=== PATIENT | female | born 1955 | race Native Hawaiian/Other Pacific Islander ===

== ENCOUNTER 2016-03-06 16:34 | Emergency (ER) | payer OTHER ==
[~2016-03-06] VITALS: Ht 154.9 cm; Wt 69.4 kg
[~2016-03-06 16:34] MED LIST: ALLO300T23 PO; AMBIEN5 MG PO; ANTI-DIARRHE2 MG PO; BAYER CHEWABLE81 MG OR; CLARITIN10 MG PO; CLON0.1T16 PO; CLONAZEP ODT2 MG PO; COLACE50 MG PO; COLCRYS 0.6MG0.6 MG PO; CRESTOR20 MG PO; FOLI1TAB26 PO; GABA100C2 PO; HYDR10TA47 PO; HYDR25TA60 PO; IRON45 MG PO; LEVO0.0529 PO; LISI20TA11 PO; MECLIZINE25 MG OR; MELATONIN1 MG PO; MELATONIN3 MG PO; METF500T PO; METR250T19 PO; MIRAPEX0.25 MG PO; MULT VITAMI1 PO; MYRBETRIQ25 MG PO; OMEP20CA PO; OMEPRAZOLE20 MG PO; PROBIOTI3 PO; PROZAC10 MG PO; QUET100T2 PO; TOVIAZ8 MG PO; TRAZODONE300 MG PO; VENLAFAXINE150 M1 PO; VENLAFAXINE75 M2 PO; VIT B12 ER1000 MCG PO; VIT C/VIT E PO; ZANTAC300 MG PO; [UNRECOGNIZED DRUG - OTHER] PO
[2016-03-06 17:02] VITALS: BP 105/61; TEMP 98
[2016-03-06 17:44] LABS: PLATELET COUNT 162 K/uL (152-353)
[2016-03-06 17:56] LABS: POTASSIUM 4.3 mmol/L (3.6-5.2)
== END 2016-03-06 18:38 | disposition home or self-care (01) ==
LOC: ED 16:34
DX: R42 Dizziness and giddiness (principal); Z79.899 Other long term (current) drug therapy
CPT/HCPCS: 36415; 80053; 83036; 85027; 99283

== ENCOUNTER 2016-05-27 16:41 | Observation (INO) | payer OTHER ==
[~2016-05-27] VITALS: Ht 162.6 cm; Wt 75.6 kg
[2016-05-27 18:28] VITALS: BP 113/71; TEMP 97.8; Ht 162.6 cm; Wt 75.6 kg
[2016-05-27 20:00] VITALS: BP 106/67; TEMP 98
[2016-05-27 21:11] LABS: PLATELET COUNT 145 K/uL (152-353)
[2016-05-27 21:22] LABS: POTASSIUM 3.7 mmol/L (3.6-5.2)
[2016-05-28 00:55] VITALS: BP 91/51; TEMP 97.6
[2016-05-28 04:00] VITALS: BP 91/43; TEMP 97.8
[2016-05-28 08:00] VITALS: BP 113/60; TEMP 97.7
[2016-05-28] MEDS ORDERED: CLARITIN10 M1 PO (08:09)
[2016-05-28] MEDS ORDERED: METF100038 PO (08:10)
[2016-05-28] MEDS ORDERED: DITROPAN XL10 MG PO (08:11)
[2016-05-28] MEDS ORDERED: OMEPRAZOLE40 MG PO (08:12)
[2016-05-28] MEDS ORDERED: CLON1TAB18 PO (08:14)
[2016-05-28] MEDS ORDERED: ROBAXIN-750750 MG PO (08:17)
[2016-05-28] MEDS ORDERED: RIVADIS TOP (08:19)
[2016-05-28] MEDS ORDERED: FERROUS SULF325 MG PO (08:21)
[2016-05-28] MEDS ORDERED: MELADOX3 MG PO (08:22)
--- NOTE | 2016-05-28 10:04 | NUR ---
[address] PINEDO CONCERNING HOME MEDS. ORDERS GIVEN TO CON'T HOME MEDS AT THIS TIME. PT INFOMRED
[2016-05-28 12:00] VITALS: BP 115/59; TEMP 97.9
--- NOTE | 2016-05-28 15:35 | NUR ---
1530 CALLED TO ROOM BY PT. PT STATES SHE JUST DOESNT FEEL GOOD. A LITTLE PRESSURE IN CHEST THAT GOES THUR TO THE BACK AND BOTH ARMS R HURTING. VS STABLE AND WNL . CE DRWN STAT AND EKG ORDERED STAT. NOTIFIED AWAITING LAB RESULTS
[2016-05-28 16:00] VITALS: BP 114/65; TEMP 98
[2016-05-28 20:00] VITALS: BP 112/51; TEMP 97.9
[2016-05-29] VITALS: BP 105/57; TEMP 97.4
[2016-05-29 04:00] VITALS: BP 106/54; TEMP 97.6
[2016-05-29 08:00] VITALS: BP 116/53; TEMP 97.6
[2016-05-29 08:13] LABS: PLATELET COUNT 128 K/uL (152-353)
[2016-05-29 08:29] LABS: POTASSIUM 3.8 mmol/L (3.6-5.2)
[2016-05-29 12:25] VITALS: BP 133/48; TEMP 97.7
== END 2016-05-29 16:00 | disposition home or self-care (01) ==
LOC: MED/SURG 16:41
PROVIDERS: ADMIT Family Medicine
DX: E86.0 Dehydration (principal); I95.89 Other hypotension; R82.90 Unspecified abnormal findings in urine
CPT/HCPCS: 36415; 80053; 80307; 81000; 82550; 83735; 84484; 85027; 87040; 87088; 93005; 99220; G0378; G0379; G0479; J0696

== ENCOUNTER 2016-06-29 16:50 | Outpatient (CLI) | payer OTHER ==
[~2016-06-29 16:50] MED LIST changes: +CLARITIN10 M1 PO; +CLON1TAB18 PO; +DITROPAN XL10 MG PO; +FERROUS SULF325 MG PO; +MELADOX3 MG PO; +METF100038 PO; +OMEPRAZOLE40 MG PO; +RIVADIS TOP; +ROBAXIN-750750 MG PO
== END 2016-06-29 19:11 | disposition home or self-care (01) ==
LOC: CT 16:50
DX: R10.30 Lower abdominal pain, unspecified (principal)

== ENCOUNTER 2016-07-09 09:29 | Outpatient (CLI) | payer OTHER | END 2016-07-09 19:29 | disposition home or self-care (01) | LOC: MAMMO 09:29 | DX: Z12.31 Encounter for screening mammogram for malignant neoplasm of breast (principal) | CPT/HCPCS: G0202-TC ==

== ENCOUNTER 2016-07-17 11:55 | Outpatient (CLI) | payer OTHER | END 2016-07-17 19:52 | disposition home or self-care (01) | LOC: RAD 11:55 → ED 11:55 → RAD 19:52 | DX: R10.31 Right lower quadrant pain (principal); E86.0 Dehydration | CPT/HCPCS: 96360; 96361 ==

== ENCOUNTER 2016-07-23 14:34 | Emergency (ER) | payer OTHER ==
[~2016-07-23] VITALS: Ht 154.9 cm; Wt 68.0 kg
[2016-07-23 16:01] LABS: PLATELET COUNT 274 K/uL (152-353)
[2016-07-23 16:04] LABS: POTASSIUM 3.4 mmol/L (3.6-5.2)
[2016-07-23 17:11] VITALS: BP 105/71; TEMP 97.4
== END 2016-07-23 17:21 | disposition home or self-care (01) ==
LOC: ED 14:34
DX: R07.89 Other chest pain (principal); K21.9 Gastro-esophageal reflux disease without esophagitis
CPT/HCPCS: 36415; 80053; 82550; 83880; 84484; 85027; 85610; 86318; 93005; 96374; 99284; J2405

== ENCOUNTER 2016-08-04 12:46 | Outpatient (CLI) | payer OTHER | END 2016-08-04 14:00 | disposition home or self-care (01) | LOC: MAMMO 12:46 | DX: R92.8 Other abnormal and inconclusive findings on diagnostic imaging of breast (principal) | CPT/HCPCS: G0206-TC ==

== ENCOUNTER 2016-08-27 12:52 | Emergency (ER) | payer OTHER ==
[~2016-08-27] VITALS: Ht 154.9 cm; Wt 69.4 kg
[2016-08-27 13:20] VITALS: BP 137/72; TEMP 98.1
== END 2016-08-27 14:57 | disposition home or self-care (01) ==
LOC: ED 12:52
DX: T24.201A Burn of second degree of unspecified site of right lower limb, except ankle and foot, initial encounter (principal); T25.222A Burn of second degree of left foot, initial encounter; T31.10 Burns involving 10-19% of body surface with 0% to 9% third degree burns; X15.2XXA Contact with hotplate, initial encounter; Y92.098 Other place in other non-institutional residence as the place of occurrence of the external cause
CPT/HCPCS: 99281

== ENCOUNTER 2016-09-24 07:49 | Outpatient (CLI) | payer OTHER | END 2016-09-24 19:12 | disposition home or self-care (01) | LOC: LABW 07:49 | PROVIDERS: Internal Medicine Cardiovascular Disease | DX: E78.4 Other hyperlipidemia (principal) | CPT/HCPCS: 36415; 80061 ==

== ENCOUNTER 2016-10-12 08:41 | Outpatient (CLI) | payer OTHER | END 2016-10-12 09:45 | disposition home or self-care (01) | LOC: US 08:41 | DX: R10.84 Generalized abdominal pain (principal) ==

== ENCOUNTER 2016-10-20 10:23 | Outpatient (CLI) | payer OTHER | END 2016-10-20 11:30 | disposition home or self-care (01) | LOC: LABW 10:23 | DX: K76.0 Fatty (change of) liver, not elsewhere classified (principal) | CPT/HCPCS: 36415; 80076 ==

== ENCOUNTER 2016-11-03 10:31 | Day surgery (SDC) | payer OTHER ==
[2016-11-03 11:39] LABS: PLATELET COUNT 163 K/uL (152-353)
[2016-11-03 11:59] LABS: POTASSIUM 3.8 mmol/L (3.6-5.2)
[2016-11-03 12:05] LABS: PARTIAL THROMBOPLASTIN TIME 26.3 SECONDS (24.5-33.6)
== END 2016-11-03 16:50 | disposition home health service (06) ==
LOC: OR 10:31
PROVIDERS: Internal Medicine Gastroenterology
PROC: 0DBK8ZZ Excision of Ascending Colon, Via Natural or Artificial Opening Endoscopic (ICD-10-PCS; principal; 2016-11-03)
PROC: 0DBN8ZZ Excision of Sigmoid Colon, Via Natural or Artificial Opening Endoscopic (ICD-10-PCS; 2016-11-03)
PROC: 0DBM8ZZ Excision of Descending Colon, Via Natural or Artificial Opening Endoscopic (ICD-10-PCS; 2016-11-03)
PROC: 0DBL8ZZ Excision of Transverse Colon, Via Natural or Artificial Opening Endoscopic (ICD-10-PCS; 2016-11-03)
DX: K63.5 Polyp of colon (principal); D12.5 Benign neoplasm of sigmoid colon; K64.8 Other hemorrhoids; Z86.010 Personal history of colon polyps; R10.9 Unspecified abdominal pain
CPT/HCPCS: 36415; 80053; 85027; 85610; 85730; J2001; J2250; J2704; J3010

== ENCOUNTER 2016-11-22 08:50 | Emergency (ER) | payer OTHER ==
[~2016-11-22] VITALS: Ht 154.9 cm; Wt 74.8 kg
[2016-11-22 09:05] VITALS: TEMP 98.5
[2016-11-22 10:34] LABS: PLATELET COUNT 154 K/uL (152-353)
[2016-11-22 10:36] LABS: POTASSIUM 4.5 mmol/L (3.6-5.2); SODIUM 137 mmol/L (136-145)
[2016-11-22 11:30] VITALS: BP 128/60
== END 2016-11-22 12:00 | disposition home or self-care (01) ==
LOC: ED 08:50
PROVIDERS: Family Medicine
DX: R07.89 Other chest pain (principal); K21.0 Gastro-esophageal reflux disease with esophagitis
CPT/HCPCS: 36415; 80053; 82550; 84484; 85027; 93005; 99283

== ENCOUNTER 2017-02-03 10:00 | Outpatient (CLI) | payer OTHER | END 2017-02-03 19:08 | disposition home or self-care (01) | LOC: MAMMO 10:00 | DX: N60.01 Solitary cyst of right breast (principal) ==

== ENCOUNTER 2017-03-11 13:56 | Outpatient (CLI) | payer OTHER | END 2017-03-11 16:49 | disposition home or self-care (01) | LOC: INF 13:56 | DX: E86.0 Dehydration (principal) | CPT/HCPCS: 96360; 96361 ==

== ENCOUNTER 2017-07-18 15:17 | Emergency (ER) | payer OTHER ==
[~2017-07-18] VITALS: Ht 152.4 cm; Wt 74.4 kg
[2017-07-18] MEDS ORDERED: CARAFATE1 GM PO (15:35)
[2017-07-18] MEDS ORDERED: EZETIMIBE10 MG PO (15:36)
[2017-07-18] MEDS ORDERED: CYCL10TA35 PO (15:36)
[2017-07-18] MEDS ORDERED: XYZAL ALLERGY 245 MG PO (15:37)
[2017-07-18] MEDS ORDERED: GALANTAMINE4 MG PO (15:37)
[2017-07-18] MEDS ORDERED: GLIP10TA55 PO (15:38)
[2017-07-18 17:09] LABS: PLATELET COUNT 166 K/uL (152-353)
[2017-07-18 17:18] LABS: POTASSIUM 3.8 mmol/L (3.6-5.2)
[2017-07-18 19:01] VITALS: BP 152/83; TEMP 98.6
== END 2017-07-18 19:06 | disposition home or self-care (01) ==
LOC: ED 15:17
DX: R51 Headache (principal); R10.84 Generalized abdominal pain; M54.89 Other dorsalgia
CPT/HCPCS: 36415; 80053; 81000; 83735; 85027; 96365; 96366; 96375; 99284; J1885; J3475

== ENCOUNTER 2017-08-30 09:26 | Outpatient (CLI) | payer OTHER ==
[~2017-08-30 09:26] MED LIST changes: +CARAFATE1 GM PO; +CYCL10TA35 PO; +EZETIMIBE10 MG PO; +GALANTAMINE4 MG PO; +GLIP10TA55 PO; +XYZAL ALLERGY 245 MG PO
== END 2017-08-30 23:12 | disposition home or self-care (01) ==
LOC: MAMMO 09:26
DX: Z12.31 Encounter for screening mammogram for malignant neoplasm of breast (principal)

== ENCOUNTER 2017-09-08 10:39 | Outpatient (CLI) | payer OTHER ==
[2017-09-08 11:11] LABS: POTASSIUM 3.7 mmol/L (3.6-5.2)
== END 2017-09-08 21:20 | disposition home or self-care (01) ==
LOC: MAMMO 10:39
PROVIDERS: Specialist
DX: R92.8 Other abnormal and inconclusive findings on diagnostic imaging of breast (principal); H81.02 Meniere's disease, left ear
CPT/HCPCS: 36415; 80048

== ENCOUNTER 2017-12-01 12:32 | Outpatient (CLI) | payer OTHER | END 2017-12-01 20:36 | disposition home or self-care (01) | LOC: LABW 12:32 | DX: Z86.010 Personal history of colon polyps (principal) | CPT/HCPCS: 82272 ==

== ENCOUNTER 2018-01-09 13:46 | Outpatient (CLI) | payer OTHER ==
[2018-01-09 14:31] LABS: POTASSIUM 4.2 mmol/L (3.6-5.2)
== END 2018-01-09 22:54 | disposition home or self-care (01) ==
LOC: LABW 13:46
PROVIDERS: Psychiatry & Neurology Neurology
DX: R40.4 Transient alteration of awareness (principal); R41.89 Other symptoms and signs involving cognitive functions and awareness; R68.2 Dry mouth, unspecified
CPT/HCPCS: 36415; 80053

== ENCOUNTER 2018-12-21 15:05 | Outpatient (CLI) | payer OTHER | END 2018-12-21 23:21 | disposition home or self-care (01) | LOC: MRI 15:05 | DX: M54.12 Radiculopathy, cervical region (principal) ==

== ENCOUNTER 2019-06-04 13:27 | Outpatient (CLI) | payer OTHER ==
[2019-06-04 14:10] LABS: POTASSIUM 3.9 mmol/L (3.6-5.2)
[2019-06-04 14:19] LABS: PLATELET COUNT 92 K/uL (152-353)
== END 2019-06-04 19:17 | disposition home or self-care (01) ==
LOC: LABW 13:27
PROVIDERS: Internal Medicine Medical Oncology
DX: D69.6 Thrombocytopenia, unspecified (principal); D64.89 Other specified anemias; R16.2 Hepatomegaly with splenomegaly, not elsewhere classified
CPT/HCPCS: 36415; 80053; 85027; 85044

== ENCOUNTER 2019-11-30 12:27 | Outpatient (CLI) | payer OTHER ==
[2019-11-30 12:57] LABS: PLATELET COUNT 105 K/uL (152-353)
[2019-11-30 13:15] LABS: PARTIAL THROMBOPLASTIN TIME 25.6 SECONDS (24.5-33.6)
[2019-11-30 13:33] LABS: POTASSIUM 3.9 mmol/L (3.6-5.2)
== END 2019-12-01 03:40 | disposition home or self-care (01) ==
LOC: LABW 12:27
PROVIDERS: Internal Medicine Medical Oncology
DX: D69.6 Thrombocytopenia, unspecified (principal); D64.89 Other specified anemias; R16.2 Hepatomegaly with splenomegaly, not elsewhere classified; N39.0 Urinary tract infection, site not specified
CPT/HCPCS: 36415; 80053; 81000; 82728; 83540; 83550; 85027; 85610; 85730

== ENCOUNTER 2020-01-02 15:22 | Outpatient (CLI) | payer OTHER ==
[2020-01-02 16:28] LABS: PLATELET COUNT 107 K/uL (152-353)
== END 2020-01-02 22:38 | disposition home or self-care (01) ==
LOC: LABW 15:22
PROVIDERS: Internal Medicine Rheumatology
DX: M79.7 Fibromyalgia (principal); M1A.09X0 Idiopathic chronic gout, multiple sites, without tophus (tophi); G57.62 Lesion of plantar nerve, left lower limb; R53.81 Other malaise; R29.6 Repeated falls; D69.49 Other primary thrombocytopenia; D69.6 Thrombocytopenia, unspecified; D64.89 Other specified anemias; R16.2 Hepatomegaly with splenomegaly, not elsewhere classified
CPT/HCPCS: 36415; 80053; 84550; 85027; 86140

== ENCOUNTER 2020-01-28 10:21 | Outpatient (CLI) | payer OTHER ==
[2020-01-28 10:32] LABS: PLATELET COUNT 116 K/uL (152-353)
== END 2020-01-28 22:09 | disposition home or self-care (01) ==
LOC: LABW 10:21
PROVIDERS: ATTEND Internal Medicine Medical Oncology
DX: D69.6 Thrombocytopenia, unspecified (principal); D64.89 Other specified anemias; R16.2 Hepatomegaly with splenomegaly, not elsewhere classified
CPT/HCPCS: 36415; 85027

== ENCOUNTER 2020-02-25 11:25 | Outpatient (CLI) | payer OTHER ==
[2020-02-25 11:55] LABS: PLATELET COUNT 132 K/uL (152-353)
[2020-02-25 12:52] LABS: POTASSIUM 3.9 mmol/L (3.6-5.2)
== END 2020-02-25 21:57 | disposition home or self-care (01) ==
LOC: LABW 11:25
PROVIDERS: ATTEND Internal Medicine Medical Oncology
DX: D69.6 Thrombocytopenia, unspecified (principal); D64.89 Other specified anemias; R16.2 Hepatomegaly with splenomegaly, not elsewhere classified
CPT/HCPCS: 36415; 80053; 82728; 83540; 83550; 85027

== ENCOUNTER 2020-03-11 16:35 | Outpatient (CLI) | payer OTHER | END 2020-03-11 22:12 | disposition home or self-care (01) | LOC: RAD 16:35 | PROVIDERS: ATTEND Internal Medicine | DX: Z01.818 Encounter for other preprocedural examination (principal) ==

== ENCOUNTER 2020-04-17 10:56 | Outpatient (CLI) | payer OTHER ==
[2020-04-17 11:35] LABS: PLATELET COUNT 131 K/uL (152-353)
[2020-04-17 16:48] LABS: POTASSIUM 4.2 mmol/L (3.6-5.2)
== END 2020-04-17 21:13 | disposition home or self-care (01) ==
LOC: LABW 10:56
PROVIDERS: ATTEND Internal Medicine Medical Oncology
DX: D69.6 Thrombocytopenia, unspecified (principal); D64.89 Other specified anemias; R16.2 Hepatomegaly with splenomegaly, not elsewhere classified
CPT/HCPCS: 36415; 80053; 82397; 82728; 83540; 83550; 83970; 85027

== ENCOUNTER 2020-06-04 14:10 | Outpatient (CLI) | payer OTHER ==
[2020-06-04 14:56] LABS: POTASSIUM 4.6 mmol/L (3.6-5.2)
[2020-06-04 16:51] LABS: PLATELET COUNT 129 K/uL (152-353)
== END 2020-06-04 20:33 | disposition home or self-care (01) ==
LOC: LABW 14:10
PROVIDERS: ATTEND Nurse Practitioner Adult Health
DX: D69.6 Thrombocytopenia, unspecified (principal); D64.89 Other specified anemias; R16.2 Hepatomegaly with splenomegaly, not elsewhere classified
CPT/HCPCS: 36415; 80053; 82397; 83970; 85027

== ENCOUNTER 2020-06-09 16:22 | Outpatient (CLI) | payer OTHER ==
[2020-06-09 17:03] LABS: PLATELET COUNT 115 K/uL (152-353)
== END 2020-06-09 20:53 | disposition home or self-care (01) ==
LOC: LABW 16:22
PROVIDERS: ATTEND Internal Medicine Hematology & Oncology
DX: D69.6 Thrombocytopenia, unspecified (principal); D64.89 Other specified anemias; R16.2 Hepatomegaly with splenomegaly, not elsewhere classified
CPT/HCPCS: 36415; 80053; 82607; 82728; 83540; 83550; 85027

== ENCOUNTER 2020-07-15 13:19 | Outpatient (CLI) | payer OTHER ==
[2020-07-15 13:58] LABS: PLATELET COUNT 102 K/uL (152-353)
[2020-07-15 14:27] LABS: POTASSIUM 3.7 mmol/L (3.6-5.2)
== END 2020-07-15 19:36 | disposition home or self-care (01) ==
LOC: LABW 13:19
PROVIDERS: ATTEND Internal Medicine Medical Oncology
DX: D69.6 Thrombocytopenia, unspecified (principal); D64.89 Other specified anemias; R16.2 Hepatomegaly with splenomegaly, not elsewhere classified
CPT/HCPCS: 36415; 80053; 82728; 83010; 83540; 83550; 85027; 85044; 86880

== ENCOUNTER 2020-07-24 11:15 | Outpatient (CLI) | payer OTHER ==
[2020-07-24 12:30] LABS: PLATELET COUNT 92 K/uL (152-353)
[2020-07-24 12:37] LABS: POTASSIUM 3.6 mmol/L (3.6-5.2)
== END 2020-07-24 22:00 | disposition home or self-care (01) ==
LOC: LABW 11:15
PROVIDERS: ATTEND Internal Medicine
DX: R06.02 Shortness of breath (principal); R60.0 Localized edema; R10.9 Unspecified abdominal pain; D64.89 Other specified anemias; E11.9 Type 2 diabetes mellitus without complications; I10 Essential (primary) hypertension
CPT/HCPCS: 36415; 80053; 81000; 83880; 85027

== ENCOUNTER 2020-10-10 13:24 | Outpatient (CLI) | payer OTHER | END 2020-10-10 23:14 | disposition home or self-care (01) | LOC: RAD 13:24 | PROVIDERS: ATTEND Specialist | DX: Z13.820 Encounter for screening for osteoporosis (principal); N95.8 Other specified menopausal and perimenopausal disorders ==

== ENCOUNTER 2021-01-03 14:06 | Emergency (ER) | payer OTHER ==
[~2021-01-03] VITALS: Ht 152.4 cm; Wt 68.0 kg
[2021-01-03 14:16] VITALS: BP 174/76; TEMP 98.4
== END 2021-01-03 15:11 | disposition home or self-care (01) ==
LOC: ED 14:06
DX: K11.21 Acute sialoadenitis (principal)
CPT/HCPCS: 96372; 99283; J0696; J1885

== ENCOUNTER 2022-08-07 11:52 | Emergency (ER) | payer OTHER ==
[~2022-08-07] VITALS: Ht 152.4 cm; Wt 61.2 kg
[2022-08-07 12:21] LABS: PLATELET COUNT 102 K/uL (152-353)
[2022-08-07 12:45] LABS: PARTIAL THROMBOPLASTIN TIME 25.4 SECONDS (23.9-36.7)
[2022-08-07 13:02] VITALS: BP 102/58; TEMP 98.6
== END 2022-08-07 13:02 | disposition home or self-care (01) ==
LOC: ED 11:52
PROVIDERS: Family Medicine
DX: M94.0 Chondrocostal junction syndrome [Tietze] (principal); E11.9 Type 2 diabetes mellitus without complications; R74.01 Elevation of levels of liver transaminase levels; R07.9 Chest pain, unspecified; M79.7 Fibromyalgia
CPT/HCPCS: 36415; 80053; 82550; 84484; 85027; 85610; 85730; 93005; 96372; 99283; J1885; J2930

== ENCOUNTER 2022-08-16 08:27 | Outpatient (CLI) | payer OTHER ==
[2022-08-16 08:53] LABS: POTASSIUM 4.3 mmol/L (3.6-5.2)
== END 2022-08-16 18:53 | disposition home or self-care (01) ==
LOC: LABW 08:27 → US 08:30 → LABW 18:53
PROVIDERS: ATTEND Internal Medicine Endocrinology, Diabetes & Metabolism
DX: R94.5 Abnormal results of liver function studies (principal); R10.11 Right upper quadrant pain; R07.89 Other chest pain; G44.209 Tension-type headache, unspecified, not intractable; R26.81 Unsteadiness on feet
CPT/HCPCS: 36415; 80053; 82565

== ENCOUNTER 2022-09-02 13:50 | Emergency (ER) | payer OTHER ==
[~2022-09-02] VITALS: Ht 152.4 cm; Wt 62.1 kg
[2022-09-02 15:59] LABS: PLATELET COUNT 89 K/uL (152-353)
[2022-09-02 16:05] LABS: POTASSIUM 3.8 mmol/L (3.6-5.2)
[2022-09-02 18:15] VITALS: BP 129/70; TEMP 97.5
== END 2022-09-02 18:15 | disposition home or self-care (01) ==
LOC: ED 13:50
PROVIDERS: Family Medicine
DX: R42 Dizziness and giddiness (principal)
CPT/HCPCS: 80053; 85027; 99283